=== PATIENT | male | born 1950 | race Caucasian/White ===

== ENCOUNTER → 2021-10-04 | Outpatient (CLI) | payer BC ==
[~2021-10-04] MED LIST: AMLODIPINE-ATO1 EAC6 PO; TAMS.4ER PO; VICODIN HP 10-1 EACH PO
== END | disposition home or self-care (01) ==
LOC: LAB SHORT 13:56
PROVIDERS: Family Medicine
DX: M54.50 Low back pain, unspecified (principal); G89.29 Other chronic pain
CPT/HCPCS: G0480